=== PATIENT | female | born 1995 | race African-American/Black ===

== ENCOUNTER 2020-05-05 14:38 | Emergency (ER) | payer MEDICAID ==
[~2020-05-05] VITALS: Ht 160 cm; Wt 59.0 kg
[2020-05-05 14:49] VITALS: BP 139/79
--- NOTE | 2020-05-05 14:50 | NUR ---
PT STATED SHE HAS NOT ATE ANYTHING, ONLY DRANK PROTEIN SHAKE, STARBUCKS AND A LITTLE BIT WATER.
--- NOTE | 2020-05-05 14:50 | NUR ---
PT C/O DIZZINESS AND GENERALIZED WEAKNESS, STATED HAD SIMILAR SYMPTOMS EVERY PERIOD, LMP TODAY 05/05/20, PT STATED HAD THESE SYMPTOMPS EVERY PERIOD FOR 5 MONTHS. NKA, PMH: ANEMIA, ASTHMA
--- NOTE | 2020-05-05 15:02 | NUR ---
GAVE PT 2 JUICE D/T PT BLOOD SUGAR 67.
--- NOTE | 2020-05-05 15:23 | NUR ---
Dr Johns at bedside examining pt
--- NOTE | 2020-05-05 15:33 | NUR ---
Pt ambulated to restroom, urine collected at this time
[2020-05-05] MEDS ORDERED: NACL 0.9% 1,000 ML IV ONE (15:35)
--- NOTE | 2020-05-05 15:41 | NUR ---
technical support technician at bedside.
--- NOTE | 2020-05-05 15:42 | NUR ---
20G IV placed to left AC, blood drawn at this time and given to laborer general.
[2020-05-05 15:51] LABS: BASOPHILS % (AUTO) 0.5 % (0.0-2.0); EOSINOPHILS # (AUTO) 0.1 K/uL (0-0.4); EOSINOPHILS % (AUTO) 0.8 % (0.0-4.0); HEMATOCRIT 38.2 % (36-48); HEMOGLOBIN 12.7 g/dL (12.0-16.0); LYMPHOCYTES # (AUTO) 1.3 K/uL (2.5-16.5); LYMPHOCYTES % (AUTO) 14.1 % (20.5-51.1); MEAN CORPUSCULAR HEMOGLOBIN 30 pg (27-31); MEAN CORPUSCULAR HGB CONC 33 g/dL (33-37); MEAN CORPUSCULAR VOLUME 89.2 fL (80-94); MONOCYTES # (AUTO) 0.6 K/uL (0.8-1.0); MONOCYTES % (AUTO) 6.2 % (1.7-9.3); NEUTROPHILS # (AUTO) 7.3 K/uL (1.8-7.7); NEUTROPHILS % (AUTO) 78.4 % (42.2-75.2); PLATELET COUNT (AUTO) 223 K/uL (140-450); RED BLOOD CELL COUNT(AUTO) 4.28 MIL/uL (4.20-5.40); RED CELL DISTRIBUTION WIDTH 13.1 % (11.6-13.7); WHITE BLOOD COUNT (AUTO) 9.4 K/uL (4.8-10.8)
[2020-05-05 16:08] LABS: ALBUMIN 4.4 g/dL (3.4-5.0); ANION GAP 11.8 (8-16); CARBON DIOXIDE 27.6 mmol/L (21-32); CREATININE 0.9 mg/dL (0.6-1.3); POTASSIUM 3.4 mmol/L (3.5-5.1); TOTAL BILIRUBIN 0.3 mg/dL (0.0-1.0)
[2020-05-05] MEDS ORDERED: POTASSIUM CHLORIDE 10 MEQ TABER PO ONE (16:15)
[2020-05-05 16:25] VITALS: BP 121/69
--- NOTE | 2020-05-05 16:36 | NUR ---
IV removed and 2x2 gauze placed to IV site.
--- NOTE | 2020-05-05 16:38 | NUR ---
Patient discharged with v/s stable. Written and verbal after care instructions given and explained. Patient verbalized understanding. To follow up with Dr. Puckett (OBGYN). Ambulatory with steady gait. All questions addressed prior to discharge. Advised to follow up with PMD.
== END 2020-05-05 16:38 | disposition home or self-care (01) ==
LOC: MED 14:38
DX: E87.6 Hypokalemia (principal); R53.1 Weakness; J45.909 Unspecified asthma, uncomplicated; M25.512 Pain in left shoulder; D64.9 Anemia, unspecified
CPT/HCPCS: 36415; 71045; 80053; 81002; 81025; 82948; 85025; 93005; 96360; 99285; J7030

== ENCOUNTER 2020-05-23 08:47 | Emergency (ER) | payer MEDICAID ==
[~2020-05-23] VITALS: Ht 160 cm; Wt 64.4 kg
[2020-05-23 08:51] VITALS: BP 117/71
--- NOTE | 2020-05-23 08:58 | NUR ---
PATIENT AMBULATED TO ER BED 07
--- NOTE | 2020-05-23 09:03 | NUR ---
DR. LOVELL EVALUATING PT AT BEDSIDE
[2020-05-23] MEDS ORDERED: NACL 0.9% 1,000 ML IV ONE (09:05)
--- NOTE | 2020-05-23 09:22 | NUR ---
TO CT SCAN VIA W/C
--- NOTE | 2020-05-23 09:26 | NUR ---
BACK TO BED 07 VIA W/C FROM CT SCAN
--- NOTE | 2020-05-23 09:30 | NUR ---
PT C/O HEADACHE X9 MONTHS, 9/10 SHARP TEMPORAL PAIN SOMETIMES RADIATING TO MIDDLE OF HEAD. PT DENIES N/V/D; SKIN IS INTACT, PINK/WARM/DRY; AAOX4, PERRL, WITH EVEN AND STEADY GAIT; LUNGS CLEAR BL, BREATHING UNLABORED; TACHYCARDIC AT THIS TIME, BL PERIPHERAL PULSES PRESENT; BS ACTIVE X4, NO TENDERNESS TO PALPATION, PT DENIES ANY FEVER, SOB, OR COUGH AT THIS TIME, BUT REPORTS MILD CHEST PAIN 1/10 DULL AT TIMES; PATIENT POSITIONED FOR COMFORT; HOB ELEVATED; BEDRAILS UP X2; BED DOWN.
[2020-05-23] MEDS ORDERED: KETOROLAC 30 MG/ML VIAL IVP ONE (09:35)
--- NOTE | 2020-05-23 09:45 | NUR ---
PT REFUSED TORADOL FOR PAIN AT THIS TIME. PT STATES PAIN IS 4/10 AND IS TOLERABLE. WILL CONTINUE TO MONITOR.
[2020-05-23 10:42] VITALS: BP 117/71
--- NOTE | 2020-05-23 10:43 | NUR ---
Patient discharged with v/s stable. Written and verbal after care instructions given and explained. Patient alert, oriented and verbalized understanding of instructions. Ambulatory with steady gait. All questions addressed prior to discharge. ID band removed. Patient advised to follow up with PMD. Rx of SUDAFED, MOTRIN, AND NORCO given. Patient educated on indication of medication including possible reaction and side effects. Opportunity to ask questions provided and answered.
== END 2020-05-23 10:43 | disposition home or self-care (01) ==
LOC: MED 08:47
DX: R51.9 Headache, unspecified (principal); J45.909 Unspecified asthma, uncomplicated
CPT/HCPCS: 70450; 96360; 99284; J7030; J1885

== ENCOUNTER 2020-10-10 07:59 | Emergency (ER) | payer MEDICAID ==
[~2020-10-10] VITALS: Ht 160 cm; Wt 56.7 kg
[2020-10-10 08:03] VITALS: BP 130/71
--- NOTE | 2020-10-10 08:06 | NUR ---
PT AMBULATED TO BED 09.
--- NOTE | 2020-10-10 08:15 | NUR ---
24 y/o F coming in from home with c/c pelvic pain. Patient states she completed antibiotic treatment yesterday for a UTI diagnosed last week. Pt states she was initially prescribed amoxicillin, changed to microdantin due to chest pain allergic side effects. Pt states she is 17 weeks , and reports pain as 6/10, pressure, intermittent, radiating to her buttocks. Pt states associated urinary urgency/hesitation. Denies N/V/D, chest pain, SOB, fever/chills, dizziness, headache. cardiac monitor technician in place. Bed locked in lowest position, side rails x 1. LMP: 06/25/2020; BM: yesterday normal. G4 T2 L2. PMH: Asthma Meds: Denies Allergies: Amoxicillin (reaction: chest pain) Sx: denies
--- NOTE | 2020-10-10 08:26 | NUR ---
Dr. Christopher is evaluating patient at bedside.
--- NOTE | 2020-10-10 08:40 | NUR ---
Lab at bedside
--- NOTE | 2020-10-10 08:41 | NUR ---
SANDRA COLLECTED, WALKED TO LAB HANDED TO FELECIA.
--- NOTE | 2020-10-10 08:49 | NUR ---
Ultrasound at bedside
[2020-10-10 08:52] LABS: BASOPHILS % (AUTO) 0.4 % (0.0-2.0); EOSINOPHILS # (AUTO) 0.2 K/uL (0-0.4); EOSINOPHILS % (AUTO) 2.1 % (0.0-4.0); HEMATOCRIT 33.2 % (36-48); HEMOGLOBIN 11.2 g/dL (12.0-16.0); LYMPHOCYTES # (AUTO) 1.9 K/uL (2.5-16.5); LYMPHOCYTES % (AUTO) 22.7 % (20.5-51.1); MEAN CORPUSCULAR HEMOGLOBIN 30 pg (27-31); MEAN CORPUSCULAR HGB CONC 34 g/dL (33-37); MEAN CORPUSCULAR VOLUME 89.2 fL (80-94); MONOCYTES # (AUTO) 0.5 K/uL (0.8-1.0); MONOCYTES % (AUTO) 6.3 % (1.7-9.3); NEUTROPHILS # (AUTO) 5.6 K/uL (1.8-7.7); NEUTROPHILS % (AUTO) 68.5 % (42.2-75.2); PLATELET COUNT (AUTO) 211 K/uL (140-450); RED BLOOD CELL COUNT(AUTO) 3.72 MIL/uL (4.20-5.40); RED CELL DISTRIBUTION WIDTH 13.3 % (11.6-13.7); WHITE BLOOD COUNT (AUTO) 8.2 K/uL (4.8-10.8)
[2020-10-10 09:10] LABS: ALBUMIN 3.3 g/dL (3.4-5.0); ANION GAP 10.7 (8-16); CARBON DIOXIDE 26.8 mmol/L (21-32); CREATININE 0.6 mg/dL (0.6-1.3); POTASSIUM 3.5 mmol/L (3.5-5.1); TOTAL BILIRUBIN 0.2 mg/dL (0.0-1.0)
[2020-10-10 09:14] LABS: PROTHROMBIN TIME 9.3 secs (10.8-13.4)
--- NOTE | 2020-10-10 09:20 | NUR ---
Patient resting in semi-fowlers position. media monitor remains in place. Respirations even/unlabored. All pt needs met at this time. Bed locked in lowest position, side rails x 1, call light in reach.
--- NOTE | 2020-10-10 09:48 | NUR ---
Pelvic exam and wet mount set up at bedside. Dr. Christopher is at bedside accompanied by female RN.
--- NOTE | 2020-10-10 09:55 | NUR ---
Wet mount swab collected by Dr. Christopher, walked to lab and handed to zeinab Jones tech.
--- NOTE | 2020-10-10 10:15 | NUR ---
Patient resting in position of comfort. [place] provided at this time. Respirations even/unlabored. Bed locked in lowest position, side rails x 1, call light in reach.
[2020-10-10 10:59] LABS: APPEARANCE,URINE CLEAR (CLEAR); BILIRUBIN,URINE NEGATIVE (NEGATIVE); BLOOD, URINE TRACE-I (NEGATIVE); COLOR,URINE YELLOW (YELLOW); LEUKOCYTE ESTERASE ,URINE NEGATIVE (NEGATIVE); NITRITE, URINE NEGATIVE (NEGATIVE); UGLUCOSE NEGATIVE (NEGATIVE)
--- NOTE | 2020-10-10 11:09 | NUR ---
Patient resting in position of comfort. pet care attendant remains in place. Respirations even/unlabored. All pt needs met at this time. Bed locked in lowest position, side rails x 1, call light in reach.
[2020-10-10 11:23] LABS: WBC,URINE 0-5 /HPF (0-5)
[2020-10-10 11:58] VITALS: BP 104/61
--- NOTE | 2020-10-10 11:59 | NUR ---
Patient discharged with v/s stable. Written and verbal after care instructions given and explained. Patient verbalized understanding. Ambulatory with steady gait. All questions addressed prior to discharge. Advised to follow up with PMD.
== END 2020-10-10 11:50 | disposition home or self-care (01) ==
LOC: MED 07:59
DX: O26.892 Other specified pregnancy related conditions, second trimester (principal); R10.9 Unspecified abdominal pain; Z3A.17 17 weeks gestation of pregnancy
CPT/HCPCS: 36415; 76805; 80053; 81001; 81025; 84702; 85025; 85610; 86886; 86900; 86901; 87086; 87210; 99284